=== PATIENT | female | born 1995 | race Caucasian/White ===

== ENCOUNTER 2020-03-29 14:31 | Outpatient (CLI) | payer MEDICAID, SELFPAY ==
[2020-03-29 14:40] VITALS: BP 128/70; PULSE 104; RESP 22; TEMP 36.4; O2SAT 98; BMI 31.2
[2020-03-29 15:34] LABS: Fetal Membrane Rupture (Rapid) Negative (Negative)
[2020-03-29 17:09] LABS: Basophils # 0.1 K/mm3 (0-0.2); Basophils % 0.7 % (0.1-2.0); Eosinophils # 0.1 K/mm3 (0.0-0.4); Eosinophils % 0.7 % (0.1-12.0); Hematocrit 32.4 % (37.0-47.0); Hemoglobin 9.9 g/dL (12.2-16.2); Lymphocytes # 1.9 K/mm3 (0.7-4.5); Lymphocytes % 19.4 % (10-50); Mean Corpuscular HGB Conc 30.7 g/dL (31.8-35.4); Mean Corpuscular Hemoglobin 22.3 pg (27.0-31.2); Mean Corpuscular Volume 72.5 fl (81-99); Monocytes # 0.6 K/mm3 (0.1-1.0); Monocytes % 6.8 % (1.7-9.3); Neutrophils # 6.9 K/mm3 (1.8-7.8); Neutrophils % 72.4 % (37.0-80.0); Platelet Count 262 K/mm3 (142-424); Red Blood Count 4.47 M/mm3 (4.20-5.40); Red Cell Distribution Width 15.9 % (11.5-17.5); White Blood Count 9.5 K/mm3 (4.8-10.8)
[2020-03-29 17:21] LABS: Microscopic, Urine URINE MICROSCOPIC (MICROSCOPIC)
[2020-03-29 17:36] LABS: Appearance,Urine CLEAR (Clear); Bilirubin,Urine Negative (Negative); Blood, Urine Negative (Negative); Color,Urine YELLOW (Yellow); Glucose,Urine (UA) Negative (Negative); Ketones,Urine Negative (Negative); Leukocyte Esterase,Urine Negative (Negative); Nitrate,Urine Negative (Negative); Protein,Urine Negative (Negative); Specific Gravity, Urine 1.015 (1.005-1.030); Urobilinogen,Urine 0.2 EU/dl (0.2)
[2020-03-29 17:38] LABS: Chloride 103 mmol/L (98-107)
[2020-03-29 17:39] LABS: Potassium 3.9 mmoL/L (3.5-5.1); Sodium 133 mmol/L (136-145)
[2020-03-29 17:41] LABS: Blood Urea Nitrogen 9 mg/dl (7-17); Creatinine Clearance Estimated 226 mL/min (50-200); Estimated Glomerular Filt Rate 152 ml/min (>60); GFR (African American) 183 ML/MIN (>60)
[2020-03-29 17:42] LABS: Anion Gap 9.9 mEq/L (5-15); Calcium 9.3 mg/dl (8.4-10.2); Carbon Dioxide 24 mmol/L (22.0-30.0); Glucose 77 mg/dl (74-100)
[2020-03-29 17:48] LABS: Barbiturates Screen,Urine Negative ng/ml (<200); Benzodiazepines Screen,Urine Negative ng/ml (<200)
[2020-03-29 17:49] LABS: Amphetamine/Metha Screen,Urine Negative ng/ml (<1000)
[2020-03-29 17:50] LABS: Cannabinoid Screen,Urine Negative ng/ml (<50); Methadone Screen,Urine Negative ng/ml (<300)
[2020-03-29 17:51] LABS: Cocaine Screen,Urine Negative ng/ml (<300)
[2020-03-29 17:52] LABS: Opiate Screen,Urine Negative ng/ml (<300); Phencyclidine Screen,Urine Negative ng/ml (<25)
--- NOTE | 2020-03-30 08:30 | HMH.ACPN2 ---
Internal Medicine - PN: Subj *Date: 03/30/20 *Time: 08:30 Interval history: She is a 24-year-old 3 para 2 at proximately 36 weeks gestational age. She is been followed at [facility] as well or somewhere else in [facility] throughout this . She said that she has a scheduled for early April. She came in by ambulance feeling lightheaded and short of breath. She says that she had critically low hemoglobin. She has not had a transfusion or iron infusion. She said that she was here visiting family. Exam Vital signs and Labs for Last 24 Hours: Temp Pulse Resp BP Pulse Ox 97.6 F 104 H 22 128/70 98 03/29/20 14:40 03/29/20 14:40 03/29/20 14:40 03/29/20 14:40 03/29/20 14:40 Laboratory Results - last 24 hr 03/29/20 14:50: Membrane Rupture Negative 03/29/20 16:15: WBC 9.5, RBC 4.47, Hgb 9.9 L, Hct 32.4 L, MCV 72.5 L, MCH 22.3 L, MCHC 30.7 L, RDW 15.9, Plt Count 262, MPV 9.0, Neut % (Auto) 72.4, Lymph % (Auto) 19.4, Lake % (Auto) 6.8, Eos % (Auto) 0.7, Baso % (Auto) 0.7, Neut # (Auto) 6.9, Lymph # (Auto) 1.9, Lake # (Auto) 0.6, Eos # (Auto) 0.1, Baso # (Auto) 0.1 03/29/20 16:15: Sodium 133 L, Potassium 3.9, Chloride 103, Carbon Dioxide 24, Anion Gap 9.9, BUN 9, Creatinine 0.50 L, Estimated Creat Clear 226, Estimated GFR 152, Est GFR ( Amer) 183, Glucose 77, Calcium 9.3 03/29/20 17:15: Urine Color Yellow, Urine Appearance Clear, Urine pH 7.0, Ur Specific [place] 1.015, Urine Protein Negative, Urine Glucose (UA) Negative, Urine Ketones Negative, Urine Blood Negative, Urine Nitrate Negative, Urine Bilirubin Negative, Urine Urobilinogen 0.2, Ur Leukocyte Esterase Negative, Urine RBC 3-5, Urine WBC 3-5 03/29/20 17:15: Urine Opiates Screen Negative, Urine Methadone Screen Negative, Ur Barbituates Screen Negative, Ur Phencyclidine Scrn Negative, Ur Amphetamines Screen Negative, U Benzodiazepines Scrn Negative, Urine Cocaine Screen Negative, U Marijuana (THC) Screen Negative I & O for Last 24 hours: Intake & Output 03/27/20 03/28/20 03/29/20 03/30/20 11:59 11:59 11:59 11:59 Weight 182 lb - Constitutional no acute distress - *Routine HEENT Exam Head: Present: normocephalic Eye: Present: EOMI, PERRL ENT: Present: mucous membranes moist - *Routine Neck Exam Present: supple. Absent: lymphadenopathy - *Routine Respiratory Exam Present: CTA bilaterally - *Routine Cardiovascular Exam Present: RRR - *Routine Abdominal Exam Present: soft, normoactive bowel sounds. Absent: tenderness - *Routine Extremities Exam Absent: cyanosis, clubbing, edema - *Routine Skin Exam Present: warm. Absent: rash - *Routine Neurological Exam Present: alert, oriented X3 Assessment and Plan (1) Lightheadedness Status: Acute Category: Medical Code(s): R42 - Dizziness and giddiness (2) on abdominal palpation in third trimester Status: Acute Category: Medical Code(s): Z34.93 - Encounter for supervision of normal , unspecified, third trimester (3) Anemia Status: Acute Category: Medical Code(s): D64.9 - Anemia, unspecified - Assessment and plan all Dx Assessment and Plan for all problems:: She has iron deficiency anemia based on her blood work. She was doing well here in labor and delivery. She is not having contractions. We gave her a liter of fluid and she felt a little better. She expressed to the nurses that she wanted to deliver her baby and we told her it was too early. She was not having any contractions. The nonstress test is reactive. Her cervix remained long and closed. We have encouraged her to take her iron tablets. We have encouraged her to travel back to [facility] to see her doctors there. We gave her 1 dose of Stadol and this seemed to help with her discomfort. Her condition on discharge is stable and improved.
== END 2020-03-29 19:20 | disposition home or self-care (01) ==
LOC: OBOUT 14:38 → OB 14:39
PROVIDERS: PCP Family Medicine; Visit Provider Nurse Practitioner Obstetrics & Gynecology
DX: O26.893 Other specified pregnancy related conditions, third trimester (principal); Z3A.36 36 weeks gestation of pregnancy; R42 Dizziness and giddiness; D64.9 Anemia, unspecified
CPT/HCPCS: 59025; 80048; 80305; 81001; 84112; 85025; 96365; 96367; G0463; J0595

== ENCOUNTER 2020-04-04 12:02 | Inpatient (IN) | payer MEDICAID, SELFPAY ==
[2020-04-04] VITALS (9 sets, daily range): BP systolic 120–156; BP diastolic 67–85; PULSE 69–115; RESP 12–20; TEMP 36.4–36.6; O2SAT 98–100; BMI 31.7
[2020-04-04 13:53] LABS: Microscopic, Urine URINE MICROSCOPIC (MICROSCOPIC)
[2020-04-04 13:56] LABS: Appearance,Urine CLEAR (Clear); Bilirubin,Urine Negative (Negative); Blood, Urine Negative (Negative); Color,Urine YELLOW (Yellow); Glucose,Urine (UA) Negative (Negative); Ketones,Urine Negative (Negative); Leukocyte Esterase,Urine TRACE (Negative); Nitrate,Urine Negative (Negative); PH,Urine 7.5 (5.0-8.5); Protein,Urine Negative (Negative); Urobilinogen,Urine 0.2 EU/dl (0.2)
[2020-04-04 14:10] LABS: Amorphous Sediment,Urine 1+ /lpf; Bacteria,Urine 1+ /lpf; Squamous Epithelial Cell,Urine Occasional #/hpf (0-5); WBC,Urine Occasional #/hpf (0-3)
[2020-04-04 14:21] LABS: Barbiturates Screen,Urine Negative ng/ml (<200)
[2020-04-04 14:22] LABS: Amphetamine/Metha Screen,Urine Negative ng/ml (<1000); Benzodiazepines Screen,Urine Negative ng/ml (<200)
[2020-04-04 14:23] LABS: Methadone Screen,Urine Negative ng/ml (<300)
[2020-04-04 14:24] LABS: Cannabinoid Screen,Urine Negative ng/ml (<50); Cocaine Screen,Urine Negative ng/ml (<300)
[2020-04-04 14:25] LABS: Opiate Screen,Urine Negative ng/ml (<300)
[2020-04-04 14:26] LABS: Phencyclidine Screen,Urine Negative ng/ml (<25)
--- NOTE | 2020-04-04 15:38 | HMH.OBAPHP ---
OB - H&P: HPI Antepartum - History of Present Illness Chief complaint: Contractions, term , gestational diabetes History of present illness: She is a 24-year-old 3 para 2 at 39 and 6 weeks gestational age. This was confirmed by her records at the [facility]. She says she has gestational diabetes that is diet-controlled. She has not seen an OB for about 3 weeks. She recently moved down here with her who his mother lives here in town. She was seen a few days ago with some contractions that settled. She was discharged home at that time. She says that she has had 2 previous sections. Since she is having pain and contractions we will go ahead and deliver her today. Nonstress test is reactive. - History of Present Criteria for establishing EDC:: LMP confirmed by 1st trimester US care: limited care Ultrasounds: normal 1st trimester US, normal mid trimester US Obstetrical complications: gestational diabetes Medical complications: none - Labs Blood type: A (+) positive Rubella: immune RPR/VDRL: nonreactive GBS status: negative HBsAG: negative [facility] History I have reviewed the patient's past medical history: Yes *Have you ever received a pneumonia vaccine?: No *Have you received a flu vaccine this season?: Yes Other Surgeries: Yes: - *Social History *Occupational Status:: unemployed *Travel in the last 8 weeks: None Family Hx:: No significant family history Para: 2 Review of Systems - Review of Systems Review of systems:: pertinent systems reviewed and negative unless documented below Meds Allergies Allergy/AdvReac Type Severity Reaction Status Date / Time No Known Allergies Allergy Verified 03/29/20 15:31 OB - H&P: Exam - Physical Exam Vital signs: Temp Pulse Resp BP Pulse Ox 97.8 F 115 H 20 137/71 99 04/04/20 14:05 04/04/20 14:05 04/04/20 14:05 04/04/20 14:05 04/04/20 14:05 - Constitutional no acute distress - Routine HEENT Exam Head: Present: normocephalic Eye: Present: EOMI, PERRL ENT: Present: mucous membranes moist - Routine Neck Exam Present: supple, full ROM - Routine Respiratory Exam Absent: accessory muscle use (good air entry bilaterally), respiratory distress, wheezes, crackles - Routine Cardiovascular Exam Present: RRR. Absent: murmur - Routine Abdominal Exam Present: soft, normoactive bowel sounds. Absent: tenderness, distended, guarding - Routine Rectal Exam Patient deferred: visual exam, digital exam - Routine Exam Patient deferred: external exam, groin exam, perineal exam - Routine Extremities Exam Present: full ROM. Absent: cyanosis, edema - Routine Skin Exam Present: intact. Absent: cyanosis - Routine Neurological Exam Present: alert, oriented X3 - Routine Psychiatric Exam Present: normal affect OB - Results - Labs Labs: Urine 04/04/20 Range/Units 13:30 Urine Color Yellow (Yellow) Urine Appearance Clear (Clear) Urine pH 7.5 (5.0-8.5) Ur Specific [place] 1.020 (1.005-1.030) Urine Protein Negative (Negative) Urine Glucose (UA) Negative (Negative) OB - A/P Antepartum (1) Previous section complicating Status: Acute (2) Gestational diabetes, diet controlled Status: Acute (3) Anemia Status: Acute - Additional Plan Planning to breastfeed?: Yes Plan: other Additional Information:: She is having irregular contractions and is quite tender to palpate. She has not changed her cervix remains at 50% effaced. Given the fact that she is had a previous section she is quite uncomfortable we will go ahead with a repeat lower segment transverse section. We discussed the risks of surgery that includes bleeding, infection, injuries to the bowel and bladder. We discussed the rare risk of DVT and the need for DVT prophylaxis. All questions were answered a
[2020-04-04 16:05] LABS: Eosinophils % 0.3 % (0.1-12.0); Mean Corpuscular Volume 70.1 fl (81-99); Monocytes # 0.5 K/mm3 (0.1-1.0)
[2020-04-04 16:08] LABS: Basophils # 0.1 K/mm3 (0-0.2); Basophils % 0.6 % (0.1-2.0); Hematocrit 28.6 % (37.0-47.0); Hemoglobin 8.9 g/dL (12.2-16.2); Lymphocytes # 2.5 K/mm3 (0.7-4.5); Lymphocytes % 28.7 % (10-50); Mean Corpuscular Hemoglobin 21.7 pg (27.0-31.2); Mean Platelet Volume 8.5 fl (7.4-10.4); Monocytes % 5.8 % (1.7-9.3); Neutrophils # 5.7 K/mm3 (1.8-7.8); Neutrophils % 64.7 % (37.0-80.0); Platelet Count 239 K/mm3 (142-424); Red Blood Count 4.07 M/mm3 (4.20-5.40); White Blood Count 8.8 K/mm3 (4.8-10.8)
[2020-04-04 16:10] LABS: Anion Gap 9.9 mEq/L (5-15); Blood Urea Nitrogen 8 mg/dl (7-17); Calcium 9.2 mg/dl (8.4-10.2); Carbon Dioxide 23 mmol/L (22.0-30.0); Chloride 101 mmol/L (98-107); Creatinine Clearance Estimated 230 mL/min (50-200); Estimated Glomerular Filt Rate 152 ml/min (>60); GFR (African American) 183 ML/MIN (>60); Glucose 84 mg/dl (74-100); Potassium 3.9 mmoL/L (3.5-5.1); Sodium 130 mmol/L (136-145)
[2020-04-04 16:20] LABS: Coronavirus 19 IgG Antibody Negative (Negative); Coronavirus 19 IgM Antibody Negative (Negative)
--- NOTE | 2020-04-04 17:22 | HMH.OPNOTE ---
Date of procedure: 04/04/20 Pre-op Diagnosis:: Term , previous section, gestational diabetes diet-controlled Post-op Diagnosis:: Term , previous section, gestational diabetes diet-controlled Procedure performed:: Repeat lower segment transverse section Surgeon:: Yehuda Sarmiento MD Under Sheriff(s):: Dr. Bourne STONE SETTER APPRENTICE:: Vincenzo Olivas Anesthesia: spinal Estimated blood loss (mL): 600 Clinical Note:: She is a 24-year-old 3 para 2 at 39 and 6 weeks gestational age. She has been followed at the [facility] for her . She moved down here, 2 or 3 weeks ago with her who is from this area. She did not return for any visits after that. She came in today having regular contractions. Her cervix however had not changed. She was extremely uncomfortable. As result of that we elected perform a repeat lower segment transverse section today. Operative findings:: She delivered a liveborn male child at 4:57 PM in the afternoon of April 04, 2020. Baby had Apgars of 8 at 1 minute and 9 at 5 minutes. Ovaries and tubes appeared normal. There was some adhesions of the bladder that had pulled the bladder upwards. Operative note:: She was taken to the operating room where spinal anesthesia was found be adequate. She was prepped and draped in normal sterile fashion in the supine position with a leftward tilt. A Martinez catheter was in the bladder. A Pfannenstiel skin incision was made with knife then carried through to the underlying layer of fascia with cautery. The fascia was opened in the midline with cautery and extended laterally using Whipple scissors. Cece clamps were applied to the superior aspect of the fascial incision which was tented up and the underlying rectus muscles dissected off using cautery. The [place] clamps were then applied to the inferior aspect of the fascial incision which in a similar fashion was tented up and the underlying rectus muscles dissected off using cautery. The rectus muscles were then in the midline, the peritoneum identified, and entered sharply with Metzenbaum scissors. This incision was then extended superiorly and inferiorly with cautery. We had good visualization of the bladder inferiorly. The bladder peritoneum was then opened in the midline and extended laterally using Metzenbaum scissors. The bladder was adherent slightly farther up the uterus than normal but I was able to easily dissect this off. A bladder flap was created digitally. Transverse incision was made through the uterine muscle to the amnion. This incision was then extended laterally using fingers traction. The amnion was entered sharply with knife. There was clear amniotic fluid. The infant's head was then delivered atraumatically. A loose nuchal cord was then reduced. This was followed by the anterior shoulder and the rest of the infant's body atraumatically. The oropharynx and nasopharynx were bulb suctioned. The was then handed off to Dr. Everett who assigned Apgars of 8 at 1 minute and 9 at 5 minutes. We then obtained cord blood . Using gentle traction on the cord and countertraction on the fundus I was able to easily deliver the placenta intact. It had a normal three-vessel cord. The uterus was then cleared of clots and debris . The uterus was then exteriorized from the abdominal cavity. The uterine incision was then closed using running 0 Vicryl suture in a locked fashion. A second layer of the same suture was used to imbricate the first layer. The bladder peritoneum was then closed using running 2-0 Vicryl suture in a locked fashion. The gutters and cul-de-sac were then cleared of clots and debris . Once again hemostasis was assured. The uterus was then returned to the abdominal cavity. The peritoneum was grasped with Bernice clamps and closed using running 2-0 Vicryl suture. The rectus muscles were then reapproximated using running 0 Vicryl
--- NOTE | 2020-04-04 17:34 | P.PN_ITS ---
[facility] Anesthesia Checklist - Patient Identification Patient Identification: Arm Band - Structural Data Admitted From: Inpatient Planned Operative Procedure/s: repeat c/s Consent for Planned Operative Procedure(s) Verified: Yes Verified Documents: Surgical Consent, History and Physical - NPO Status Verified Time NPO: 00:00 - Additional verifications Anesthesia Reactions: No - Airway Assessment C-Spine Mobility Assessed: Yes (mp2) TMJ Mobility Assessed: Yes Dentition: Good Dentition - Neurological Assessment Level of Consciousness: Awake, Alert - Anesthesia Plan Anesthesia Risk discussed: Yes Anesthesia Plan: Verified ASA Class: II Anesthesia Type: Spinal [facility] History I have reviewed the patient's past medical history: Yes *Have you ever received a pneumonia vaccine?: No *Have you received a flu vaccine this season?: Yes Anesthesia experience/problems:: nac Other Surgeries: Yes: - *Social History Substance Use Type: denies use *Occupational Status:: unemployed *Travel in the last 8 weeks: None Family Hx:: No significant family history Para: 2
--- NOTE | 2020-04-04 17:35 | P.PN_ITS ---
[facility] Anesthesia Record Part I Intake, IV Amount: 2,000 Estimated blood loss (mL): 600 Urine output (mL): 100 Blood Pressure: 156/67 SaO2: 99 Pulse Rate: 100 Respiratory Rate: 16 Temperature: 97.5 F Patient is:: Drowsy, Stable Stable to PACU at:: 17:30
[2020-04-04 19:22] LABS: Basophils # 0.1 K/mm3 (0-0.2); Basophils % 0.5 % (0.1-2.0); Eosinophils % 0.2 % (0.1-12.0); Hematocrit 30.4 % (37.0-47.0); Hemoglobin 9.4 g/dL (12.2-16.2); Lymphocytes # 2.2 K/mm3 (0.7-4.5); Mean Corpuscular HGB Conc 30.9 g/dL (31.8-35.4); Mean Corpuscular Hemoglobin 22.3 pg (27.0-31.2); Monocytes # 0.4 K/mm3 (0.1-1.0); Monocytes % 4.3 % (1.7-9.3); Neutrophils # 7.4 K/mm3 (1.8-7.8); Platelet Count 217 K/mm3 (142-424); Red Blood Count 4.22 M/mm3 (4.20-5.40); Red Cell Distribution Width 16.1 % (11.5-17.5); White Blood Count 10.1 K/mm3 (4.8-10.8)
--- NOTE | 2020-04-04 19:32 | SUR.OPER ---
Ancef 2 gm IVPB administered at 1633 per Vincenzo Olivas CRNA. Counting for QBL: Dr Sarmiento witnessed counts and weights of 3 lap sleeves, 23 laps, 1 blue towel, 3 chux for total of 1441 grams. I asked if he wanted me to start a second IV in the PACU for transfusion and he stated no. He had already type/crossed the patient. He felt comfortable with an EBL of 600 ml.
[2020-04-04 19:41] LABS: Microscopic,Cath URINE MICROSCOPIC (MICROSCOPIC)
[2020-04-04 19:47] LABS: Appearance,Urine/Cath CLEAR (Clear); Bilirubin,Cath Negative (Negative); Blood, Urine/Cath Negative (Negative); Color,Urine/Cath YELLOW (Yellow); Glucose,Urine/Cath (UA) Negative (Negative); Ketones,Urine/Cath 1+ (Negative); Leukocyte Esterase,Cath Negative (Negative); Nitrate,Cath Negative (Negative); Protein,Urine/Cath Negative (Negative); Urobilinogen,Cath 0.2 EU/dl (0.2)
[2020-04-04 22:00] LABS: POC Glucose,Bedside 135 (70-110)
[2020-04-05 06:49] LABS: Hematocrit 28.7 % (37.0-47.0); Hemoglobin 9.1 g/dL (12.2-16.2)
--- NOTE | 2020-04-05 08:21 | HMH.ANESII ---
[facility] Anesthesia Record Part II Discharge Time: 18:07 Destination: Obstetric PACU nurse assessment reviewed?: Yes Patient Condition:: Good Anesthesia Complications:: None Swallowing reflex intact?: Yes Cyanosis?: No Blood Pressure: 122/85 Pulse Rate: 96 Temperature: 97.5 F Mental Status: Alert & Oriented Pain level:: 0 Nausea and/or vomitting:: None Intake, IV Amount: 0
[2020-04-05 08:22] VITALS: BP 122/85; PULSE 96; TEMP 36.4
--- NOTE | 2020-04-05 09:21 | HMH.ACPN2 ---
Internal Medicine - PN: Subj *Date: 04/05/20 *Time: 09:21 Interval history: She continues to do well this morning. She is eating and drinking and ambulating. Her pain is reasonably well controlled. Exam Vital signs and Labs for Last 24 Hours: Temp Pulse Resp BP Pulse Ox 97.5 F L 96 H 19 122/85 99 04/05/20 08:22 04/05/20 08:22 04/04/20 18:07 04/05/20 08:22 04/04/20 18:07 Laboratory Results - last 24 hr 04/04/20 13:30: Urine Color Yellow, Urine Appearance Clear, Urine pH 7.5, Ur Specific [place] 1.020, Urine Protein Negative, Urine Glucose (UA) Negative, Urine Ketones Negative, Urine Blood Negative, Urine Nitrate Negative, Urine Bilirubin Negative, Urine Urobilinogen 0.2, Ur Leukocyte Esterase Trace, Urine RBC 3-5, Urine WBC Occasional, Ur Squamous Epith Cells Occasional, Amorphous Sediment 1+, Urine Bacteria 1+ 04/04/20 13:30: Urine Opiates Screen Negative, Urine Methadone Screen Negative, Ur Barbituates Screen Negative, Ur Phencyclidine Scrn Negative, Ur Amphetamines Screen Negative, U Benzodiazepines Scrn Negative, Urine Cocaine Screen Negative, U Marijuana (THC) Screen Negative 04/04/20 15:40: WBC 8.8, RBC 4.07 L, Hgb 8.9 L, Hct 28.6 L, MCV 70.1 L, MCH 21.7 L, MCHC 31.0 L, RDW 16.0, Plt Count 239, MPV 8.5, Neut % (Auto) 64.7, Lymph % (Auto) 28.7, Coal % (Auto) 5.8, Eos % (Auto) 0.3, Baso % (Auto) 0.6, Neut # (Auto) 5.7, Lymph # (Auto) 2.5, Coal # (Auto) 0.5, Eos # (Auto) 0.0, Baso # (Auto) 0.1 04/04/20 15:40: Sodium 130 L, Potassium 3.9, Chloride 101, Carbon Dioxide 23, Anion Gap 9.9, BUN 8, Creatinine 0.50 L, Estimated Creat Clear 230, Estimated GFR 152, Est GFR ( Amer) 183, Glucose 84, Calcium 9.2 04/04/20 15:40: Blood Type A Positive, Antibody Screen Negative, Crossmatch (AHG) See Detail 04/04/20 15:40: SARS-CoV-2 IgG Ab (Rapid) Negative, SARS-CoV-2 IgM Ab (Rapid) Negative 04/04/20 15:40: Blood Type Confirm A Positive 04/04/20 16:43: Urine Color Yellow, Urine Appearance Clear, Urine pH 7.0, Ur Specific [place] 1.020, Urine Protein Negative, Urine Glucose (UA) Negative, Urine Ketones 1+, Urine Blood Negative, Urine Nitrate Negative, Urine Bilirubin Negative, Urine Urobilinogen 0.2, Ur Leukocyte Esterase Negative, Urine WBC 10-20 A 04/04/20 19:15: WBC 10.1, RBC 4.22, Hgb 9.4 L, Hct 30.4 L, MCV 72.0 L, MCH 22.3 L, MCHC 30.9 L, RDW 16.1, Plt Count 217, MPV 8.0, Neut % (Auto) 73.0, Lymph % (Auto) 22.0, Coal % (Auto) 4.3, Eos % (Auto) 0.2, Baso % (Auto) 0.5, Neut # (Auto) 7.4, Lymph # (Auto) 2.2, Coal # (Auto) 0.4, Eos # (Auto) 0.0, Baso # (Auto) 0.1 04/04/20 21:53: POC Glucose 135 H 04/05/20 06:25: Hgb 9.1 L, Hct 28.7 L I & O for Last 24 hours: Intake & Output 04/02/20 04/03/20 04/04/20 04/05/20 11:59 11:59 11:59 11:59 Intake Total 2440 / 2440 Output Total 100 / 100 Balance 2340 / 2340 Weight 185 lb - Constitutional no acute distress - *Routine HEENT Exam Head: Present: normocephalic Eye: Present: EOMI, PERRL ENT: Present: mucous membranes moist Assessment and Plan (1) Previous section complicating Status: Acute Category: Surgical Code(s): O34.219 - Maternal care for unspecified type scar from previous delivery (2) Gestational diabetes, diet controlled Status: Acute Category: Medical Code(s): O24.410 - Gestational diabetes mellitus in , diet controlled (3) Anemia Status: Acute Category: Medical Code(s): D64.9 - Anemia, unspecified - Assessment and plan all Dx Assessment and Plan for all problems:: She is doing well this morning. She is eating and drinking and ambulating. She does look somewhat pale. We will check on her hemoglobin if it is below 8 we will go ahead and transfuse her 2 units that we had crossed for her.
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
[2020-04-05 20:00] VITALS: BP 137/80; PULSE 89; RESP 18; TEMP 36.8; O2SAT 100
[2020-04-06 04:21] VITALS: BP 111/58; PULSE 81; RESP 16; TEMP 36.7; O2SAT 98
[2020-04-06 08:14] LABS: HIV Screen 4th Generation wRfx Non Reactive (Non Reactive)
--- NOTE | 2020-04-06 08:17 | P.PN_ITS ---
Internal Medicine - PN: Subj *Date: 04/06/20 *Time: 08:17 Interval history: She continues to do well this morning. She is eating and drinking and ambulating. She is breast-feeding. Her lochia is normal. Her incision is clean and dry. Exam Vital signs and Labs for Last 24 Hours: Temp Pulse Resp BP Pulse Ox 98.1 F 81 16 111/58 L 98 04/06/20 04:21 04/06/20 04:21 04/06/20 04:21 04/06/20 04:21 04/06/20 04:21 I & O for Last 24 hours: Intake & Output 04/03/20 04/04/20 04/05/20 04/06/20 11:59 11:59 11:59 11:59 Intake Total 2440 / 2440 Output Total 100 / 100 Balance 2340 / 2340 Weight 185 lb Microbiology Reports for the Last 24 Hours: Microbiology 04/04/20 16:43 Urine,Catheterized Urine Culture - Preliminary NO GROWTH AFTER 24 HOURS - Constitutional no acute distress - *Routine HEENT Exam Head: Present: normocephalic Eye: Present: EOMI, PERRL ENT: Present: mucous membranes moist Assessment and Plan (1) Previous section complicating Status: Acute Category: Surgical Code(s): O34.219 - Maternal care for unspec ified type scar from previous delivery (2) Gestational diabetes, diet controlled Status: Acute Category: Medical Code(s): O24.410 - Gestational diabetes mellitus in , diet controlled (3) Anemia Status: Acute Category: Medical Code(s): D64.9 - Anemia, unspecified - Assessment and plan all Dx Assessment and Plan for all problems:: She is doing well this morning. We will plan to send her home tomorrow.
[2020-04-06 08:23] LABS: Rapid Plasma Reagin Ab Titer Non Reactive (NonRea<1:1)
--- NOTE | 2020-04-06 13:00 | HMH.PHAVTE ---
[facility] Pharmacy VTE Monitoring - Patient Demographics Admission date: 04/04/20 Report Date: 04/06/20 Time: 13:01 Allergies/Adverse Reactions: Patient Allergies No Known Allergies Allergy (Verified 03/29/20 15:31) Height: 1.63 m Weight: 83.915 kg Patient Problems: Current Active Problems Anemia (Acute) Previous section complicating (Acute) Gestational diabetes, diet controlled (Acute) - VTE Risk Labs: VTE Related Lab Results Hgb 9.1 g/dL (12.2-16.2) L 04/05/20 06:25 Hct 28.7 % (37.0-47.0) L 04/05/20 06:25 Plt Count 217 K/mm3 (142-424) 04/04/20 19:15 BUN 8 mg/dl (7-17) 04/04/20 15:40 Creatinine 0.50 mg/dl (0.52-1.04) L 04/04/20 15:40 Estimated Creat Clear 230 mL/min (50-200) 04/04/20 15:40 - Prophylaxis VTE Prophylaxis Ordered?: Yes Types of VTE Prophylaxis: IPCS Thigh High Location of Applied Device: Bilateral Lower Extremeties
[2020-04-06 13:04] LABS: Hepatitis B Surface Antigen Negative (Negative)
--- NOTE | 2020-04-06 16:14 | [facility].OBDCSM ---
General - General Admission date:: 04/04/20 Discharge date: 04/07/20 HPI - History of Present Illness Comments: She is a 24-year-old 3 para 2 who came in having regular contractions. She was 39 weeks and 6 days. She was followed in the [facility] for her and was scheduled to have a repeat section the day after she arrived here in labor and delivery. Hospital Course Hospital Course: Since she was having regular contractions and pain although she did not change her cervix we elected to perform a repeat lower segment transverse section. She was term. She has moved down here from [place] since her boyfriend is mother lives here. She underwent a repeat lower segment transverse section on April 04, 2020 she delivered a liveborn male child at 4:57 PM in the afternoon. The baby weighed 7 pounds 1 ounce and was 20 inches long. He had Apgars of 8 at 1 minute and 9 at 5 minutes. She has done well and has remained afebrile throughout her hospitalization. She is eating and drinking and ambulating. She is breast-feeding. Her lochia is normal. She is discharged home to follow-up with me in approximately 2 weeks time. She will continue with her vitamins and iron. She was given the usual instructions with respect to limiting her activity, driving and sexual activity. Her condition on discharge is stable and improved. Objective Vital signs: Temp Pulse Resp BP Pulse Ox 98.1 F 81 16 111/58 L 98 04/06/20 04:21 04/06/20 04:21 04/06/20 04:21 04/06/20 04:21 04/06/20 04:21 no acute distress - *Routine Neck Exam Present: supple Results Labs on day of discharge: Labs from last 24 hours 04/04/20 19:15 RPR Titer Non reactive Hep Bs Antigen Negative HIV 1&2 Ag/Ab, 4th Gen Non reactive Preliminary micro results at discharge 04/04/20 16:43 Urine Culture - Preliminary Urine,Catheterized NO GROWTH AFTER 24 HOURS DS: Diagnosis - Discharge Diagnosis (1) Previous section complicating Status: Acute (2) Gestational diabetes, diet controlled Status: Acute (3) Anemia Status: Acute Discharge Plan - Patient Discharge Instructions ACTIVITY: No heavy lifting DIET: continue same diet Additional Instructions: Nothing in the vagina for 6 weeks Drink plenty of fluids No driving Patient Instructions: Depression, Hemorrhage, DI for , DI for Pre-eclampsia, [facility] Post Discharge Instructions, Preventing the Spread of Coronavirus Discharge Instructions - Follow up Plan Disposition: Home, Self-Shelter Medications: Home Medications Medication Instructions Recorded Confirmed Type No Known Home Medications 04/05/20 04/05/20 History Oxycodone HCl/Acetaminophen 1 tab PO Q4-6H PRN #20 tablet 04/06/20 Rx [Percocet 5/325mg tablet] Prescriptions/Medication Reconciliation: New Oxycodone HCl/Acetaminophen [Percocet 5/325mg tablet] 1 tab PO Q4-6H PRN #20 tablet PRN Reason: Severe Pain No Action No Known Home Medications - Problem Reconciliation Problems Reviewed?: Yes
[2020-04-06 20:00] VITALS: BP 132/71; PULSE 90; RESP 18; TEMP 36.3; O2SAT 100
[2020-04-07 03:39] VITALS: BP 110/55; PULSE 84; RESP 18; TEMP 36.8; O2SAT 98
[2020-04-07 07:35] VITALS: BP 118/74; PULSE 81; RESP 18; TEMP 36.6; O2SAT 100
--- NOTE | 2020-04-07 10:52 | [facility]H.ACPN2 ---
Internal Medicine - PN: Subj *Date: 04/07/20 *Time: 10:52 Interval history: POD #3 c section discharge arranged for today tolerating regular diet Ambulating and voiding without difficulty asymptomatic with anemia Exam Vital signs and Labs for Last 24 Hours: Temp Pulse Resp BP Pulse Ox 97.9 F 81 18 118/74 100 04/07/20 07:35 04/07/20 07:35 04/07/20 07:35 04/07/20 07:35 04/07/20 07:35 Laboratory Results - last 24 hr 04/04/20 19:15: Hep Bs Antigen Negative, Rubella IgG Antibody 4.90 I & O for Last 24 hours: Intake & Output 04/04/20 04/05/20 04/06/20 04/07/20 11:59 11:59 11:59 11:59 Intake Total 2440 / 2440 Output Total 100 / 100 Balance 2340 / 2340 Weight 185 lb Microbiology Reports for the Last 24 Hours: Microbiology 04/04/20 16:43 Urine,Catheterized Urine Culture - Final NO GROWTH AFTER 48 HOURS Narrative: CONSTITUTIONAL: no acute distress HEENT: mucous membranes moist PULMONARY: breathing unlabored without audible wheezes CV: no tachycardia or visible JVD; normal LE peripheral pulses ABD: soft, ND; appropriately tender but no rebound/guarding : fundus firm at/below umbilicus SKIN: incision well approximated with no drainage, erythema or induration EXT: 1+ edema LEs NEURO: alert/oriented, no altered mental status PSYCH: appropriate mood and demeanor without anxiety/depression Assessment and Plan (1) Previous section complicating Status: Acute Category: Surgical Code(s): O34.219 - Maternal care for unspecified type scar from previous delivery (2) Gestational diabetes, diet controlled Status: Acute Category: Medical Code(s): O24.410 - Gestational diabetes mellitus in , diet controlled (3) Anemia Status: Acute Category: Medical Code(s): D64.9 - Anemia, unspecified - Assessment and plan all Dx Assessment and Plan for all problems:: Discharge home today, per previous arrangements Follow up in office with Dr. Sarmiento 1-2 weeks
[2020-04-07 13:29] LABS: POC Glucose,Bedside 84 (70-110)
[2020-04-07 15:28] LABS: Buprenorphine Negative
== END 2020-04-07 13:40 | disposition home or self-care (01) | DRG 788 ==
LOC: OB 12:04
PROVIDERS: Admitting Provider Nurse Practitioner Obstetrics & Gynecology; Visit Provider Nurse Practitioner Obstetrics & Gynecology
PROC: 10D00Z1 Extraction of Products of Conception, Low, Open Approach (ICD-10-PCS; CPT 59514; principal; 2020-04-04 17:00)
DX: O24.420 Gestational diabetes mellitus in childbirth, diet controlled (principal); Z3A.39 39 weeks gestation of pregnancy; Z37.0 Single live birth; O34.211 Maternal care for low transverse scar from previous cesarean delivery; N85.8 Other specified noninflammatory disorders of uterus; O99.013 Anemia complicating pregnancy, third trimester
CPT/HCPCS: 59514; 36415; 59025; 80048; 80305; 80348; 81001; 82962; 85014; 85018; 85025; 86328; 86592; 86762; 86850; 87086; 87340; J0595; J2405